=== PATIENT | female | born 1955 | race Caucasian/White ===

== ENCOUNTER 2017-04-04 19:34 | Emergency (ER) | payer BC ==
[2017-04-04 19:40] VITALS: BP 160/86
--- NOTE | 2017-04-04 19:57 | EDM.PDOC ---
ED HPI GENERAL MEDICAL PROBLEM - General Chief Complaint: General Stated Complaint: tick bite on tuesday removed tick, now red Time Seen by Provider: 04/04/17 19:45 Source of Information: Reports: Patient, Old Records ([facility] chart/EMR) History Limitations: Reports: No Limitations - History of Present Illness INITIAL COMMENTS - FREE TEXT/NARRATIVE: The patient drove herself to the emergency room via private automobile for evaluation of a progressive rash in her abdomen after she removed a tick from that side at about 15:00 hours on 04/01. She pulled the tick off of her fingers with no evidence of retained insect by her history. She has been cleaning the area with hydrogen peroxide with no history of fever, arthralgias, fatigue, purulent drainage, neurological deficits, weakness, etc. She denies any pain or discomfort at this time Onset: Gradual Onset Date: 04/01/17 Onset Time: 15:00 Duration: Constant, Getting Worse Location: Reports: Abdomen Quality: Reports: Other (No pain) Improves with: Reports: None Worsens with: Reports: None Context: Reports: Other (As above) Associated Symptoms: Reports: Rash. 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 Denies: Glaucoma, Hard of Hearing, Macular Degeneration, Otitis Media, Retinal Detachment Cardiovascular History: Reports: Hypertension, Other (See Below). Denies: Afib , Aneurysm, Arrhythmia, Blood Clots/VTE/DVT, CAD, Heart Failure, Heart Murmur, High Cholesterol, IL, PVD, Syncope Other Cardiovascular History: Hypertension with no current medical therapy, cardiomegaly by chest x-ray likely secondary to hypertensive the Respiratory History: Reports: None. Denies: Asthma, COPD, Intubation, Previous , PE, Pneumothorax, Sleep Apnea, TB Gastrointestinal History: Reports: None. Denies: Celiac Disease, Cholelithiasis , Chronic Constipation, Chronic Diarrhea, Gastritis, GERD, GI Bleed, Hepatitis, Hiatal Hernia, Jaundice, Pancreatitis, PUD Genitourinary History: Reports: None. Denies: Acute Renal Failure, Chronic Renal Insuffiency, Renal Calculus, Retention, Urinary, STD, Urinary Incontinence , UTI, Recurrent [employer] History: Reports: . Denies: Dysfunctional Uterine Bleeding, Endometriosis, Fibroids, Spontaneous : 1 (Full term without complications during pregnancies or deliveries) Para: 1 LMP (Approximate): Menopausal (In her 50s) Musculoskeletal History: Reports: None. Denies: Amputation, Arthritis, Back Pain, Chronic, Fracture, Fibromyalgia, Gout, Neck Pain, Chronic, Osteoarthritis , RA, SLE Neurological History: Reports: None. Denies: Cerebral Aneurysms, Concussion, CVA, Headaches, Chronic, Head Trauma, Migraines, MS, Parkinson's, Seizure, TIA Psychiatric History: Reports: None. Denies: Abuse, Victim of, ADD, ADHD, Addiction, Anxiety, Depression, Psych Hospitalization(s), PTSD, Suicide Attempt , Suicidal Ideation Endocrine/Metabolic History: Reports: None, Obesity/BMI 30+. Denies: Diabetes, Type I, Diabetes, Type II, Hypothyroidism, IDDM Hematologic History: Reports: None. Denies: Anemia, Blood Transfusion(s), Iron Deficiency Immunologic History: Reports: None. Denies: AIDS, HIV, SLE Oncologic (Cancer) History: Reports: None. Denies: Basal Cell Carcinoma, Cervix , Hodgkin's Lymphoma, Leukemia, Lymphoma, Malignant Melanoma, Non-Hodgkin's Lymphoma, Squamous Cell Carcinoma Dermatologic History: Reports: None. Denies: Eczema, Psoriasis - Infectious Disease History Infectious Disease History: Reports: Chicken Pox, Measles, Mumps. Denies: C- Difficile, Meningitis, Mononucleosis, MRSA, Pertussis (Whooping Cough), Rheumatic Fever, Rubella, Scarlet Fever, Shingles, TB, VRE - Past Surgical History Head Surgeries/Procedures: Reports: None HEENT Surgical History: Reports: Cataract Surgery, Oral Surgery. Denies: Adenoidectomy, Detached Retina, Laser Surgery, Myringotomy w Tube(s), Naso- Sinus Surgery, Tonsillectomy Other HEENT Surgeries/Procedures: Harrison teeth extraction x4 and total upper teeth extractions with multiple lower extractions in her 50s with patient having complete upper dentures, bilateral cataract surgery in her 50s Cardiovascular Surgical History: Reports: None. Denies: Varicose, Vascular Surgery Respiratory Surgical History: Reports: None. Denies: Lung Biopsies, Thoracentesis GI Surgical History: Reports: None. Denies: Appendectomy, Cholecystectomy, Colonoscopy, EGD, Hernia, Abdominal, Hernia, Inguinal, Hernia Repair/Other Female Surgical History: Reports: None. Denies: D&C, Hysterectomy, Tubal Ligation Endocrine Surgical History: Reports: None. Denies: Thyroid Biopsy Neurological Surgical History: Reports: None. Denies: C-Spine, Discectomy, Intracranial, Laminectomy, Lumbar Spine, Spinal Fusion, Vertebroplasty Musculoskeletal Surgical History: Reports: None. Denies: Arthroscopic Procedure , Carpal Tunnel, Ganglion Cyst, Joint Replacement, ORIF, Shoulder Surgery Oncologic Surgical History: Reports: None Dermatological Surgical History: Reports: None - Past Imaging History Past Imaging History: Reports: None Social & Family History - Tobacco Use Smoking Status *Q: Never Smoker Smoking Cessation Information Provided To Patient: No Second Hand Smoke Exposure: No Second Hand Smoke Education Provided: No - Caffeine Use Caffeine Use: Reports: Coffee (4 cups per day), Soda (One soda 2 times per week) . 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 Denies: Fever, Chills, Weakness, Fatigue , Night Sweats, Diaphoresis HEENT: Reports: Glasses. Denies: Dental Pain, Ear Pain, Eye Discharge, Eye Pain , Nose Pain, Rhinitis, Sinus Problem, Throat Pain, Throat Swelling, Vertigo, Vision Change Respiratory: Reports: No Symptoms. Denies: Shortness of Breath, Wheezing, Pleuritic Chest Pain, Cough Cardiovascular: Reports: No Symptoms. Denies: Chest Pain, Blood Pressure Problem, Claudication, Dyspnea on Exertion, Edema, Lightheadedness, Orthopnea, Palpitations, Syncope Endocrine: Reports: No Symptoms. Denies: Fatigue GI/Abdominal: Reports: No Symptoms. Denies: Abdominal Pain, Anorexia, Black Stool, Bloody Stool, Constipation, Diarrhea, Decreased Appetite, Difficulty Swallowing, Distension, Flatus, Hematemesis, Hematochezia, Melena, Nausea, Stool Incontinence, Vomiting : Reports: No Symptoms. Denies: Discharge, Dysuria, Flank Pain, Frequency, Hematuria, Incontinence, Pain, Urgency, Urinary Retention Musculoskeletal: Reports: No Symptoms. Denies: Neck Pain, Shoulder Pain, Arm Pain, Back Pain, Hand Pain, Leg Pain, Foot Pain, Joint Pain, Joint Swelling, Muscle Pain, Muscle Stiffness Skin: Reports: Rash. Denies: Diaphoresis, Bruising, Pruritis, Erythema, Wound Neurological: Reports: No Symptoms. Denies: Confusion, Dizziness, Headache, Numbness, Paresthesia, Seizure, Syncope, Tingling, Difficulty Walking, Weakness , Gait Disturbance Psychiatric: Reports: No Symptoms. Denies: Agitation, Anxiety, Confusion, Depression, Hallucinations, Suicidal Ideation Hematologic/Lymphatic: Reports: No Symptoms Immunologic: Reports: No Symptoms ED EXAM, GENERAL - Physical Exam Exam: See Below Exam Limited By: No Limitations General Appearance: Alert, WD/WN, No Apparent Distress Head: Atraumatic, Normocephalic. No: Facial Swelling, Facial Tenderness, Sinus Tenderness Neck: Normal Inspection, Supple, Non-Tender, Full Range of Motion. No: Lymphadenopathy (L), Lymphadenopathy (R), Thyromegaly Respiratory/Chest: No Respiratory Distress, Lungs Clear, Normal Breath Sounds, No Accessory Muscle Use, Chest Non-Tender. No: Pleural Rub, Retractions Cardiovascular: Normal Peripheral Pulses, Regular Rate, Rhythm, No Edema, No Gallop, No JVD, No Murmur, No Rub. No: Gallop/S3, Gallop/S4, Friction Rub Peripheral Pulses: 2+: Radial (L), Radial (R) GI/Abdominal: Soft, Non-Tender, No Organomegaly, No Distention, No Abnormal Bruit, No Mass, Pelvis Stable, Other (obese, 10 centimeter in diameter target lesion over the left lower quadrant with a 3 mm in diameter mild eschar with retained stinger as below no purulent drainage, lymphangitis, or other rashes noted). No: Guarding (Female) Exam: Deferred Rectal (Female) Exam: Deferred Back Exam: Normal Inspection, Full Range of Motion. No: CVA Tenderness (L), CVA Tenderness (R), Muscle Spasm Extremities: Normal Inspection, Normal Range of Motion, Non-Tender, Normal Capillary Refill, Pedal Edema (Trace bilateral pedal/pretibial edema), Other ( No joint inflammation or swelling). No: Chuy's Sign Neurological: Alert, Oriented, CN II-XII Intact, Normal Cognition, Normal Gait, No Motor/Sensory Deficits Psychiatric: Normal Affect, Normal Mood Skin Exam: Warm, Dry, Rash ( target lesion as above), Wound/Incision (Tick bite as above). No: Diaphoretic Lymphatic: No Adenopathy Course - Vital Signs Last Recorded V/S: Last Vital Signs Temp 36.9 C 04/04/17 19:38 Pulse 82 04/04/17 19:38 Resp 18 04/04/17 19:38 BP 160/86 H 04/04/17 19:38 Pulse Ox 94 L 04/04/17 19:38 Vital Signs - 24 hr 04/04/17 19:38 Temperature [ 36.9 C Oral] Pulse, 82 Peripheral [ Left Pulse Oximetry] Respiratory 18 Rate Blood Pressure 160/86 H [Left Upper Arm ] O2 Sat by Pulse 94 L Oximetry - Orders/Labs/Meds Orders: Active Orders 24 hr Category Date Time Status Obtain Past Medical Record [OM.PC] Routine Oth 04/04/17 19:58 Active Labs: None Meds: Medications Discontinued Medications Generic Name Dose Route Start Last Admin Trade Name Freq PRN Reason Stop Dose Admin Neomycin/Polymyxin/Bacitracin 1 each 04/04/17 19:58 04/04/17 20:02 Triple Antibiotic Oint TOP 04/04/17 19:59 1 each ONETIME ONE Administration - Radiology Interpretation Free Text/Narrative:: None Departure - Departure Time of Disposition: 20:28 Disposition: Home, Self-Care 01 Condition: good Clinical Impression: Obesity (BMI 35.0-39.9 without comorbidity) Tick bite of abdominal wall Qualifiers: Encounter type: initial encounter Qualified Code(s): S30.861A - Insect bite ( nonvenomous) of abdominal wall, initial encounter Hypertension Qualifiers: Hypertension type: essential hypertension Qualified Code(s): I10 - Essential ( primary) hypertension - Discharge Information Instructions: Lyme Disease Forms: ED Department Discharge Additional Instructions: 1. Establish a new primary care provider TANIKA 2. Followup with your regular provider in 10-14 days as directed with recommended Lymes disease workup at that time secondary to today's target lesion. Note that this is currently free of charge through the [facility] 3. Watch your blood pressure and pulse closely through your regular provider with consideration of reinitiation of blood pressure medications depending on her clinical course. 4. Recommend update of your routine healthcare TANIKA, including yearly physical exam, initial screening colonoscopy, mammogram TANIKA, etc. as discussed 5. Antibacterial soap wash/soak with subsequent antibacterial dressing such as Neosporin, etc. as directed 2 times per day until the wound or laceration site completely heals. Keep the area clean and dry with activity restrictions as discussed. 6. Tylenol 650 mg by mouth every 4 hours and/or OTC ibuprofen 2-3 tabs by mouth every 6 hours with food as directed./needed. - Problem List & Annotations (1) Tick bite of abdominal wall SNOMED Code(s): 45202114 Code(s): S30.861A - INSECT BITE (NONVENOMOUS) OF ABDOMINAL WALL, INIT ENCNTR ; W57.XXXA - BIT/STUNG BY NONVENOM INSECT & OTH NONVENOM ARTHROPODS, INIT Status: Acute Priority: High Onset Date: ~04/01/17 Annotation/Comment:: Typical bull's-eye target lesion for possible Lyme's disease, but the patient is completely nonsymptomatic at this time other than the above rash. Blood work at this time would not be beneficial today secondary to absence of symptoms and recent bite, although Lyme's disease titer strongly advisable at followup as per discharge instructions secondary to typical rash as above. Appropriate information provided Qualifiers: Encounter type: initial encounter Qualified Code(s): S30.861A - Insect bite (nonvenomous) of abdominal wall, initial encounter; W57.XXXA - Bitten or stung by nonvenomous insect and other nonvenomous arthropods, initial encounter (2) Hypertension SNOMED Code(s): 21494709 Code(s): I10 - ESSENTIAL (PRIMARY) HYPERTENSION Status: Acute Priority: Medium Annotation/Comment:: Previous history of hypertension with no current medical therapy and the medications for quite some time. Patient has had limited preventative healthcare with update of her routine healthcare TANIKA as discussed and as per discharge instructions. Reinitiate medical therapy depending on her clinical course with patient to establish a new primary care provider TANIKA with no current provider locally Qualifiers: Hypertension type: essential hypertension Qualified Code(s): I10 - Essential (primary) hypertension (3) Obesity (BMI 35.0-39.9 without comorbidity) SNOMED Code(s): 193789080, 243526315 Code(s): E66.9 - OBESITY, UNSPECIFIED Status: Chronic Priority: Medium Annotation/Comment:: Weight loss and exercise in moderation are advisable. Update routine healthcare TANIKA as above - Problem List Review Problem List Initiated/Reviewed/Updated: Yes - My Orders Last 24 Hours: My Active Orders 04/04/17 19:58 Obtain Past Medical Record [OM.PC] Routine - Assessment/Plan Last 24 Hours: My Active Orders 04/04/17 19:58 Obtain Past Medical Record [OM.PC] Routine Assessment:: As above Plan: As above. Extensive precautions were given to the patient, who is in agreement with the treatment plan. See Patient Instructions for further treatment and plan.
[2017-04-04] MEDS ORDERED: Bacitracin/Neomycin/Polymyxin B Oint 0.9 GM U/D Packet TOP ONE (19:58)
== END 2017-04-04 20:28 | disposition home or self-care (01) ==
LOC: LL.ED 19:34
DX: S30.861A Insect bite (nonvenomous) of abdominal wall, initial encounter (principal); I10 Essential (primary) hypertension; E66.9 Obesity, unspecified; H54.7 Unspecified visual loss; Z98.49 Cataract extraction status, unspecified eye; Z98.890 Other specified postprocedural states; Z79.899 Other long term (current) drug therapy; W57.XXXA Bitten or stung by nonvenomous insect and other nonvenomous arthropods, initial encounter
CPT/HCPCS: 99283

== ENCOUNTER 2023-11-08 18:20 | Observation (INO) | payer BC, OTHER ==
[2023-11-08 18:58] LABS: BASOPHILS ABSOLUTE AUTO 0.04 K/uL (0.00-0.20); BASOPHILS PERCENT AUTO 0.6 % (0.0-2.0); EOSINOPHILS ABSOLUTE AUTO 0.18 K/uL (0.00-0.50); EOSINOPHILS PERCENT AUTO 2.9 % (0.0-5.0); HEMATOCRIT 39.7 % (34.0-46.0); HEMOGLOBIN 14.3 g/dL (11.7-15.5); LYMPHOCYTES ABSOLUTE AUTO 2.38 K/uL (0.50-3.50); LYMPHOCYTES PERCENT AUTO 38.4 % (10.0-50.0); MEAN CORPUSCULAR HEMOGLOBIN 29.1 pg (28.2-33.3); MEAN CORPUSCULAR VOLUME 80.7 fL (84.0-98.0); MONOCYTES ABSOLUTE AUTO 0.59 K/uL (0.00-1.00); MONOCYTES PERCENT AUTO 9.5 % (2.0-14.0); NEUTROPHILS ABSOLUTE AUTO 3.01 K/uL (1.40-7.00); NEUTROPHILS PERCENT AUTO 48.6 % (45.0-80.0); PLATELET COUNT,PLT 327 K/uL (150-350); RED BLOOD CELL COUNT 4.92 M/uL (3.77-5.09); RED CELL DISTRIBUTION WIDTH 12.8 % (11.2-14.1); WHITE BLOOD CELL COUNT,WBC 6.2 K/uL (4.0-10.2)
[2023-11-08 19:12] LABS: PROTHROMBIN TIME 9.5 SEC (9.0-11.1)
[2023-11-08 19:28] LABS: ALANINE AMINOTRANSFERASE,ALT 27 U/L (12-78); ALBUMIN 3.8 g/dL (3.4-5.0); ALKALINE PHOSPHATASE 132 IU/L (46-116); ASPARTATE AMNIOTRANSFERASE,AST 11 U/L (15-37); BILIRUBIN TOTAL 0.5 mg/dL (0.2-1.0); BLOOD UREA NITROGEN,BUN 14 mg/dL (7-18); CALCIUM 9.9 mg/dL (8.5-10.1); CARBON DIOXIDE,CO2 29.6 mmol/L (21.0-32.0); CHLORIDE,CL 94 mmol/L (98-107); CREATININE 0.83 mg/dL (0.51-1.17); POTASSIUM,K 5.5 mmol/L (3.5-5.1); PRO B-TYPE NATRIUR PEPT,BNPPRO 25 pg/mL (0-125); PROTEIN TOTAL,TP 7.9 g/dL (6.4-8.2); SODIUM,NA 131 mmol/L (136-145)
[2023-11-08 19:33] LABS: ANION GAP 12.9 meq/L (7-15)
[2023-11-08 19:35] LABS: ESTIMATED GFR 76 mL/min (>=60); GLUCOSE RANDOM 463 mg/dL (70-99)
[2023-11-08] MEDS ORDERED: Sodium Chloride 0.9% 1,000 ML IV ONE (19:51)
[2023-11-08] MEDS ORDERED: Sodium Chloride 0.9% 10 ML Syringe FLUSH PRN (19:51)
[2023-11-08 20:02] LABS: HEMOGLOBIN A1C > 14.0 % (4.3-5.7)
[2023-11-08 20:19] LABS: O2 DELIVERY DEVICE ROOM AIR
[2023-11-08 20:20] LABS: BASE EXCESS VENOUS 2 mmol/L ((-2)-3); BICARBONATE,VENOUS 29 mmol/L (23-28); O2 SATURATION VENOUS 28 %; PCO2 VENOUS 52 mmHG (41-51); PH,VENOUS 7.35 (7.31-7.41); PO2 VENOUS 20 mmHG
[2023-11-08 20:25] LABS: CORONAVIRUS COVID-19 NAA NEGATIVE (NEGATIVE); INFLUENZA A NAA NEGATIVE (NEGATIVE); INFLUENZA B NAA NEGATIVE (NEGATIVE); RESPIRATORY SYNCYTIAL VIR NAA NEGATIVE (NEGATIVE)
[2023-11-08] MEDS ORDERED: 50% Dextrose in Water 50 ML Syringe IVPUSH PRN ×2 (20:29→22:14)
[2023-11-08] MEDS ORDERED: Glucagon,Human Recombinant 1 MG Vial IM PRN ×2 (20:29→22:14)
[2023-11-08] MEDS ORDERED: Ondansetron 4 MG/2 ML SDV IVPUSH PRN (20:38)
[2023-11-08] MEDS ORDERED: Insulin Lispro 100 Units/ML 3 ML Vial SUBCUT ONE ×2 (20:45→22:14)
[2023-11-08] MEDS: Potassium Chloride Riders 10 MEQ in Premix Bag 1 BAG IV SCH ×5 (20:50→23:36)
[2023-11-08 22:11] LABS: CALCIUM 9.1 mg/dL (8.5-10.1); CARBON DIOXIDE,CO2 29.9 mmol/L (21.0-32.0); CREATININE 0.61 mg/dL (0.51-1.17); EST CRCL DRUG DOSING (CG) 74.1 mL/min
[2023-11-08 22:12] LABS: ANION GAP 11.1 meq/L (7-15)
[2023-11-08] MEDS ORDERED: Sodium Chloride 0.45% 1,000 ML IV SCH (22:15)
[2023-11-09] MEDS: Potassium Chloride Riders 10 MEQ in Premix Bag 1 BAG IV SCH (00:47)
[2023-11-09 02:19] LABS: CALCIUM 8.7 mg/dL (8.5-10.1); CARBON DIOXIDE,CO2 29.9 mmol/L (21.0-32.0); CREATININE 0.65 mg/dL (0.51-1.17); EST CRCL DRUG DOSING (CG) 69.54 mL/min; POTASSIUM,K 4.1 mmol/L (3.5-5.1)
[2023-11-09 02:22] LABS: ANION GAP 11.2 meq/L (7-15)
[2023-11-09] MEDS ORDERED: Metoprolol Tartrate 50 MG Tab PO ONE ×2 (07:19→08:55)
[2023-11-09 07:46] LABS: ANION GAP 13.2 meq/L (7-15); CALCIUM 8.9 mg/dL (8.5-10.1); CARBON DIOXIDE,CO2 27.4 mmol/L (21.0-32.0); CREATININE 0.66 mg/dL (0.51-1.17); EST CRCL DRUG DOSING (CG) 68.49 mL/min; POTASSIUM,K 4.6 mmol/L (3.5-5.1)
[2023-11-09] MEDS ORDERED: Insulin Lispro 100 Units/ML 3 ML Vial SUBCUT ONE ×4 (08:31→22:14)
[2023-11-09] MEDS ORDERED: Glucagon,Human Recombinant 1 MG Vial IM PRN ×3 (08:31→11:40)
[2023-11-09] MEDS ORDERED: 50% Dextrose in Water 50 ML Syringe IVPUSH PRN ×3 (08:31→11:40)
[2023-11-09 09:27] VITALS: PULSE 61
[2023-11-09] MEDS ORDERED: Insulin Regular, Human 100 Units/ML 3 ML Vial SUBCUT ONE (11:40)
[2023-11-09] MEDS ORDERED: amLODIPine 5 MG Tab PO ONE (11:41)
[2023-11-09 12:18] VITALS: BP 161/82
== END 2023-11-09 12:45 | disposition home or self-care (01) ==
LOC: LL.ED 18:20 → LL.MS 21:36
PROVIDERS: ADMIT Physician Assistant; ATTEND Physician Assistant
DX: E11.65 Type 2 diabetes mellitus with hyperglycemia (principal); E87.0 Hyperosmolality and hypernatremia; I10 Essential (primary) hypertension; Z20.822 Contact with and (suspected) exposure to COVID-19; Z79.899 Other long term (current) drug therapy
CPT/HCPCS: 0241U; 36415; 71046; 80048; 80053; 82803; 82947; 83036; 83880; 84484; 85025; 85610; 93005; 93010; 96361; 96365; 96366; 99285-25; A9270-GY; G0378; J1815-GY; J3480; J7030

== ENCOUNTER 2024-09-20 09:35 | Day surgery (SDC) | payer OTHER ==
[~2024-09-20 09:35] MED LIST: Midazolam 1 MG/ML 2 ML SDV ONE; Propofol 200 MG/20 ML SDV ONE
[2024-09-20] MEDS ORDERED: Sodium Chloride 0.9% 10 ML Syringe FLUSH PRN (09:45)
[2024-09-20] MEDS: Lactated Ringers 1,000 ML IV SCH (10:21)
[2024-09-20 12:12] VITALS: BP 168/83; PULSE 75
== END 2024-09-20 12:30 | disposition home or self-care (01) ==
LOC: LL.SDS 09:35
PROVIDERS: ATTEND Surgery
DX: Z12.11 Encounter for screening for malignant neoplasm of colon (principal); R19.5 Other fecal abnormalities; C18.2 Malignant neoplasm of ascending colon; D12.3 Benign neoplasm of transverse colon; K62.1 Rectal polyp; K57.30 Diverticulosis of large intestine without perforation or abscess without bleeding; I10 Essential (primary) hypertension; E11.9 Type 2 diabetes mellitus without complications; E66.812 Obesity, class 2; Z79.899 Other long term (current) drug therapy
CPT/HCPCS: 00811; 99100; J2250; J2704; J7120